=== PATIENT | female | born 1965 | race African-American/Black ===

== ENCOUNTER 2018-09-19 12:28 | Emergency (ER) | payer OTHER ==
[~2018-09-19] VITALS: Ht 175.3 cm; Wt 95.3 kg
[~2018-09-19 12:28] MED LIST: ADVAIR HFA 230M12 GM INH; NORCO 5-325 TA1 EACH PO; SYMBICORT160 MCG/4. INH
[2018-09-19] MEDS ORDERED: IBUPROFEN 800800 M1 PO (13:23)
[2018-09-19 13:43] VITALS: BP 100/51
== END 2018-09-19 13:44 | disposition home or self-care (01) ==
LOC: ER 12:28
DX: N64.4 Mastodynia (principal); F17.210 Nicotine dependence, cigarettes, uncomplicated; J44.9 Chronic obstructive pulmonary disease, unspecified; M48.00 Spinal stenosis, site unspecified; Z88.6 Allergy status to analgesic agent